=== PATIENT | female | born 1990 | race Hispanic/Latino ===

== ENCOUNTER 2019-04-17 17:13 | Emergency (ER) | payer MEDICAID ==
[~2019-04-17 17:13] MED LIST: IBUP-2071 PO
== END 2019-04-17 18:45 | disposition home or self-care (01) ==
LOC: EDH 17:13
DX: O99.513 Diseases of the respiratory system complicating pregnancy, third trimester (principal); J06.9 Acute upper respiratory infection, unspecified; Z3A.29 29 weeks gestation of pregnancy; Z88.0 Allergy status to penicillin
CPT/HCPCS: 87804

== ENCOUNTER 2019-06-27 06:14 | Inpatient (IN) | payer MEDICAID ==
[~2019-06-27] VITALS: Ht 165.1 cm; Wt 87.1 kg
[2019-06-27] MEDS ORDERED: OXYTOCIN 10 USP UNITS/ML 20 UNIT in LACTATED RINGERS 1000ML 1,000 ML IV SCH (07:30)
[2019-06-27] MEDS: LACTATED RINGERS 1000ML 1,000 ML IV PRN ×2 (07:35→08:50)
[2019-06-27] MEDS: CLINDAMYCIN 900 MG/D5% WATER 50 ML IV SCH ×2 (07:40→20:48)
[2019-06-27 07:53] LABS: HEMATOCRIT 31.6 % (36-48); MEAN CORPUSCULAR HEMOGLOBIN 28.1 pg (27.0-33.0); MEAN CORPUSCULAR HGB CONC 32.9 g/dL (32.0-36.0); MEAN CORPUSCULAR VOLUME 85.4 fL (79-99); RED BLOOD CELL COUNT(AUTO) 3.7 MIL/uL (4.00-5.50); RED CELL DISTRIBUTION WIDTH 13.9 % (11.0-15.5); WHITE BLOOD COUNT (AUTO) 10.5 K/uL (4.8-10.8)
[2019-06-27 07:54] LABS: APPEARANCE,URINE Clear (CLEAR); BILIRUBIN,URINE Negative (NEGATIVE); COLOR,URINE Yellow (YELLOW); GLUCOSE, URINE (UA) Negative (NEGATIVE); KETONES,URINE 40 mg/dL (NEGATIVE); LEUKOCYTE ESTERASE ,URINE Trace (NEGATIVE); NITRATE,URINE Negative (NEGATIVE); OCCULT BLOOD,URINE Nonhemolyzed Trace (NEGATIVE); PH,URINE 6.5 (5.0-8.0); PROTEIN,URINE Negative (NEGATIVE)
[2019-06-27] MEDS ORDERED: CLINDAMYCIN 900 MG/D5% WATER 50 ML IV ONE (07:55)
[2019-06-27] MEDS ORDERED: OXYTOCIN-LR 20 UNITS/1000 ML 1,000 ML IV ONE (07:56)
[2019-06-27 08:01] LABS: CREATININE 0.7 mg/dL (0.5-1.5); POTASSIUM 3.6 mmol/L (3.5-5.1)
[2019-06-27 08:07] LABS: ALBUMIN 3.2 g/dL (3.5-5.0); BILIRUBIN,TOTAL 0.5 mg/dL (0.2-1.0); TOTAL PROTEIN, SERUM 7.2 g/dL (6.0-8.3); URIC ACID 4.8 mg/dL (2.6-7.2)
[2019-06-27 08:08] LABS: BACTERIA,URINE Few /HPF (None Seen); WBC,URINE 0-1 /HPF (0-1)
[2019-06-27 08:08] LABS: INR 0.96 (0.85-1.15); PARTIAL THROMBOPLASTIN TIME 25.3 SEC (26.3-35.5); PROTHROMBIN TIME 10.4 SEC (9.6-11.6)
[2019-06-27] MEDS ORDERED: FENTANYL CITRATE PF 50 MCG/1 ML 2ML VIAL ONE (08:55)
[2019-06-27] MEDS: OXYTOCIN-LR 20 UNITS/1000 ML 1,000 ML IV SCH ×3 (09:30→18:35)
[2019-06-27] MEDS ORDERED: MISOPROSTOL 200 MCG TABLET ONE (11:13)
[2019-06-27] MEDS ORDERED: BENZOCAINE/LANOLIN/ALOE VERA 60 ML AEROSOL TP PRN (11:30)
[2019-06-27] MEDS ORDERED: IBUPROFEN 600 MG TABLET PO PRN (11:30)
[2019-06-27] MEDS ORDERED: WITCH HAZEL 1 PAD TP PRN (11:30)
[2019-06-27] MEDS ORDERED: LANOLIN 30GM OINTMENT TP PRN (11:30)
[2019-06-27] MEDS ORDERED: ACETAMINOPHEN 325 MG TAB PO PRN (11:30)
[2019-06-27] MEDS ORDERED: ACETAMINOPHEN-CODEINE 300/30MG TAB PO PRN (11:30)
[2019-06-27] MEDS ORDERED: MEASLES/MUMPS/RUBELLA VACCINE, LIVE 0.5 ML/VIAL SQ PRN (11:30)
[2019-06-27] MEDS ORDERED: DIPH,PERTUSS(ACELL),TET VAC/PF 0.5 ML VIAL IM PRN (11:30)
[2019-06-27 13:36] VITALS: BP 126/79
[2019-06-27 16:27] VITALS: BP 132/59
[2019-06-27 19:34] VITALS: BP 133/84
[2019-06-27] MEDS ORDERED: IRON1CAP30 PO (19:36)
[2019-06-27] MEDS ORDERED: PNV1TABL75 PO (19:36)
[2019-06-27] MEDS ORDERED: DOCUSATE SODIUM 100 MG CAP PO SCH (21:00)
[2019-06-28 00:18] VITALS: BP 128/80
[2019-06-28 03:59] VITALS: BP 112/60
[2019-06-28] MEDS: CLINDAMYCIN 900 MG/D5% WATER 50 ML IV SCH (07:30)
[2019-06-28 07:53] VITALS: BP 131/60
[2019-06-28 08:09] LABS: HEPATITIS Bs ANTIGEN SCREEN P Negative (Negative)
--- NOTE | 2019-06-28 08:55 | NUR ---
DR. JONI GONZALES ROUNDED AND DISCHARGED PATIENT TO HOME. PATIENT TO FOLLOW UP IN 2-[address] GONZALES.
[2019-06-28 12:00] VITALS: BP 129/71
--- NOTE | 2019-06-28 12:30 | NUR ---
DISCHARGE INSTRUCTIONS GIVEN AND PATIENT WAS ISSUED SCRIPT FOR COLACE AND MOTRIN ORDERED BY DR. GONZALES. PATIENT STABLE.
--- NOTE | 2019-06-28 14:10 | NUR ---
PATIENT WAS TAKEN VIA W/C TO [facility]ILY [facility]YING [facility]Y IN ARMS. PATIENT DENIES PAIN AND TOLERATING ACTIVITY WELL.
[2019-08-15] MEDS ORDERED: PREN1COM14 PO (13:21)
== END 2019-06-28 14:10 | disposition home or self-care (01) | DRG 560 ==
LOC: LDH 06:14 → WSH 13:30 → EDSTATUS 07-08 06:13
PROVIDERS: ADMIT Obstetrics & Gynecology; ATTEND Obstetrics & Gynecology
PROC: 10E0XZZ Delivery of Products of Conception, External Approach (ICD-10-PCS; 2019-06-27)
PROC: 3E0P7VZ Introduction of Hormone into Female Reproductive, Via Natural or Artificial Opening (ICD-10-PCS; 2019-06-27)
PROC: 3E0R3BZ Introduction of Anesthetic Agent into Spinal Canal, Percutaneous Approach (ICD-10-PCS; 2019-06-27)
PROC: 00HU33Z Insertion of Infusion Device into Spinal Canal, Percutaneous Approach (ICD-10-PCS; 2019-06-27)
PROC: 10907ZC Drainage of Amniotic Fluid, Therapeutic from Products of Conception, Via Natural or Artificial Opening (ICD-10-PCS; 2019-06-27)
PROC: 3E0134Z Introduction of Serum, Toxoid and Vaccine into Subcutaneous Tissue, Percutaneous Approach (ICD-10-PCS; principal; 2019-06-28)
DX: O99.824 Streptococcus B carrier state complicating childbirth (principal); Z37.0 Single live birth; O69.81X0 Labor and delivery complicated by cord around neck, without compression, not applicable or unspecified; Z3A.38 38 weeks gestation of pregnancy; Z23 Encounter for immunization
CPT/HCPCS: 36415; 80053; 81001; 84550; 85027; 85384; 85610; 85730; 86592; 86850; 86900; 86901; 87340; 90707; A4314; G0378; J2590; J3010; J3490

== ENCOUNTER 2019-08-18 07:25 | Day surgery (SDC) | payer MEDICAID ==
[2019-08-14 11:31] LABS: BASOPHILS % (AUTO) 0.6 % (0.0-5.0); EOSINOPHILS % (AUTO) 2.3 % (0.0-8.0); HEMATOCRIT 39.5 % (36-48); LYMPHOCYTES % (AUTO) 52.2 % (21.0-51.0); MEAN CORPUSCULAR HEMOGLOBIN 27.5 pg (27.0-33.0); MEAN CORPUSCULAR HGB CONC 32.7 g/dL (32.0-36.0); MEAN CORPUSCULAR VOLUME 84.2 fL (79-99); MONOCYTES % (AUTO) 5.5 % (3.0-13.0); NEUTROPHILS % (AUTO) 39.3 % (40.0-77.0); PLATELET COUNT (AUTO) 267 K/uL (130-400); RED BLOOD CELL COUNT(AUTO) 4.69 MIL/uL (4.00-5.50); RED CELL DISTRIBUTION WIDTH 12.1 % (11.0-15.5); WHITE BLOOD COUNT (AUTO) 7.1 K/uL (4.8-10.8)
[2019-08-14 13:05] VITALS: BP 134/77
[2019-08-18] VITALS (15 sets, daily range): BP systolic 110–136; BP diastolic 64–83
[~2019-08-18] VITALS: Ht 165.1 cm; Wt 76.5 kg
[~2019-08-18 07:25] MED LIST changes: +CALDOLOR 800MG+NS 250ML 250 ML IV ONE; +CALDOLOR 800MG+NS 250ML 250 ML IV SCH; +CLINDAMYCIN 600 MG/D5% WATER 50 ML IV SCH; -IBUP-2071 PO; +PREN1COM14 PO
[2019-08-18] MEDS ORDERED: BUPIVACAINE/PF 0.5% 10ML VIAL ONE (07:45)
[2019-08-18] MEDS ORDERED: SUCCINYLCHOLINE 200MG/10ML SYR ONE ×2 (07:50→08:01)
[2019-08-18] MEDS ORDERED: PROPOFOL 10 MG/ML 20ML VIAL IV ONE (07:50)
[2019-08-18] MEDS ORDERED: LIDOCAINE PF 2% 5ML ABBOJECT ONE ×2 (07:50→07:51)
[2019-08-18] MEDS ORDERED: DEXAMETHASONE SOD PHOSPHATE 10MG/ML 1ML VIAL ONE (07:50)
[2019-08-18] MEDS ORDERED: GLYCOPYRROLATE 1 MG/5 ML SYRINGE ONE (07:50)
[2019-08-18] MEDS ORDERED: MIDAZOLAM HCL 1 MG/ML 2ML VIAL ONE (07:50)
[2019-08-18] MEDS ORDERED: FENTANYL CITRATE PF 50 MCG/1 ML 2ML VIAL ONE (07:51)
[2019-08-18] MEDS ORDERED: ROCURONIUM 10MG/1ML SYR 10 MG/ML ML ONE (07:51)
[2019-08-18] MEDS ORDERED: ONDANSETRON HCL 4 MG/2 ML VIAL ONE (07:51)
[2019-08-18] MEDS ORDERED: NEOSTIGMINE 5MG/5ML SYR IV ONE (07:51)
[2019-08-18] MEDS ORDERED: LACTATED RINGERS 1000ML 1,000 ML IV ONE (07:53)
[2019-08-18] MEDS ORDERED: MEPERIDINE-PF 25 MG/ML SYG ONE ×4 (08:21→09:18)
--- NOTE | 2019-08-18 09:55 | NUR ---
POST OP RECEIVED PT POST OP. REPORT FROM KATHLEEN BOTELLO RN FROM PACU. PT IN NO DISTRESS AT THIS TIME. PT HAS SMALL AMT OF BRIGHT RED BLOOD ON PERIPAD. WILL CONTINUE TO MONITOR PT. PT ORIENTED TO ROOM AND CALL LIGHT
--- NOTE | 2019-08-18 10:35 | NUR ---
DISCHARGE PT GIVEN A NEW PERIPAD. SMALL AMT OF BRIGHT RED BLOOD ON OLD PAD. PT IN NO DISTRESS. V/S STABLE AND INSTRUCTIONS GIVEN TO PT AND MOTHER. PT TAKEN OUT VIA W/C BY ASHLEY MTZ
== END 2019-08-18 10:35 | disposition home or self-care (01) ==
LOC: DAH 07:25
PROVIDERS: ATTEND Obstetrics & Gynecology
DX: Z30.2 Encounter for sterilization (principal); Z88.0 Allergy status to penicillin
CPT/HCPCS: 36415 ×2; 58670; 84703; 85025; 86850 ×2; 86900 ×2; 86901 ×2; A4215; A4216; A4221; A4222; A4223 ×2; A4351; A4663; A6260; C1769 ×2; G0168; J0330 ×2; J1100; J1741 ×2; J2001 ×2; J2175 ×4; J2250; J2405; J2704; J2710; J3010; J3490 ×4; J7030; J7120; U0003